=== PATIENT | male | born 1980 | race American Indian/Alaskan Native ===

== ENCOUNTER 2018-05-25 12:24 | Emergency (ER) | payer MEDICAID ==
[2018-05-25 12:32] VITALS: TEMP 98.3; O2SAT 100
--- NOTE | 2018-05-25 14:18 | ED PDOC ---
HPI: Psych/Substance Abuse Time Seen by Provider: 05/25/18 13:10 Chief Complaint (Nursing): Psychiatric Evaluation Chief Complaint (Provider): Psychiatric Evaluation History Per: Patient History/Exam Limitations: no limitations Additional Complaint(s): 37 year old male with a history of bipolar disorder presents to the ED for psychiatric evaluation. Patient states he ran out of medications like trazodone but cannot recall the others. PMD: None provided Past Medical History Reviewed: Historical Data, Nursing Documentation, Vital Signs Vital Signs: Last Vital Signs Temp 98.3 F 05/25/18 12:29 Pulse 88 05/25/18 12:29 Resp 19 05/25/18 12:29 BP 106/70 05/25/18 12:29 Pulse Ox 100 05/25/18 12:29 - Medical History PMH: Bipolar Disorder, Schizophrenia Denies: Diabetes, Hepatitis, HIV, HTN, Seizures, Sexually Transmitted Disease - Surgical History Surgical History: No Surg Hx - Family History Family History: States: Unknown Family Hx - Immunization History Hx Tetanus Toxoid Vaccination: No Hx Influenza Vaccination: No Hx Pneumococcal Vaccination: No - Home Medications Home Medications: Ambulatory Orders Medication Instructions Recorded Benztropine [Cogentin] 1 mg PO BID 14 Days tab 12/06/16 Divalproex [Depakote DR] 500 mg PO BID 14 Days tcp 12/06/16 Haloperidol [Haldol] 10 mg PO BID 14 Days tab 12/06/16 QUEtiapine [Seroquel] 100 mg PO HS #14 tab 12/06/16 traZODone [Desyrel] 100 mg PO HS PRN #14 tab 12/06/16 - Allergies Allergies/Adverse Reactions: Allergies Allergy/AdvReac Type Severity Reaction Status Date / Time No Known Allergies Allergy Unverified 12/02/16 02:05 Review of Systems ROS Statement: Except As Marked, All Systems Reviewed And Found Negative Psych: Positive for: Psychosis, Other (no HI, auditory hallucinations). Negative for: Suicidal ideation Physical Exam - Reviewed Nursing Documentation Reviewed: Yes Vital Signs Reviewed: Yes - Physical Exam Appears: Positive for: Well, No Acute Distress (comfortable) Head Exam: Positive for: ATRAUMATIC, NORMOCEPHALIC Skin: Positive for: Normal Color, Warm, Dry Eye Exam: Positive for: Normal appearance Neurological/Psych: Positive for: Awake, Alert, Other (Patient appears to have internal stimuli but is calm and cooperative on exam ) - ECG O2 Sat by Pulse Oximetry: 100 (RA) Pulse Ox Interpretation: Normal Medical Decision Making Medical Decision Making: Time: 1334 Impression: psychosis Plan: --Crisis evaluation --Alcohol serum --urine drug screen ScribeAttestation: Documented byShameka Crain, acting as a scribe for Yesica Brnuo MD. Provider ScribeAttestation: All medical record entries made by the Scribe were at my direction and personally dictated by me. I have reviewed the chart and agree that the record accurately reflects my personal performance of the history, physical exam, medical decision making, and the department course for this patient. I have also personally directed, reviewed, and agree with the discharge instructions and disposition. Disposition - Clinical Impression Clinical Impression: Cannabis use disorder, mild, abuse - Patient ED Disposition Is Patient to be Admitted: Transfer of Care Counseled Patient/Family Regarding: Studies Performed, Diagnosis - Disposition Referrals: [facility] [Outside] - 05/28/18 Disposition: Transfer of Care Disposition Time: 15:00 Condition: STABLE Additional Instructions: Return if not better 3 days. Instructions: Marijuana Use and Addiction Patient Signed Over To: Miller Mendez
[2018-05-25 15:10] LABS: BARBITURATES, UR NEGATIVE (NEGATIVE); BENZODIAZEPINES, UR NEGATIVE (NEGATIVE); OPIATES, UR NEGATIVE (NEGATIVE); PHENCYCLIDINE, UR NEGATIVE (NEGATIVE)
--- NOTE | 2018-05-25 15:14 | ED PDOC ---
- ECG O2 Sat by Pulse Oximetry: 100 (RA) Pulse Ox Interpretation: Normal - Progress ED Course And Treament: 1859: Stable. AAOx3. Pain free. Tolerated PO. Fu with pcp. Crisis saw pt. Does not meet criteria for admit. Medical Decision Making Medical Decision Making: Time: 1500 --37 year old patient signed out to this provider by Dr. Bruno, pending Crisis Evaluation. ScribeAttestation: Documented byShameka Crain, acting as a scribe for Miller Mendez MD. Provider ScribeAttestation: All medical record entries made by the Scribe were at my direction and personally dictated by me. I have reviewed the chart and agree that the record accurately reflects my personal performance of the history, physical exam, medical decision making, and the department course for this patient. I have also personally directed, reviewed, and agree with the discharge instructions and disposition. Disposition Counseled Patient/Family Regarding: Studies Performed, Diagnosis, Need For Followup - Clinical Impression Clinical Impression: Cannabis use disorder, mild, abuse - POA Present On Arrival: None - Disposition Referrals: [facility] [Outside] - 05/28/18 Disposition: Routine/Home Disposition Time: 18:50 Condition: STABLE Additional Instructions: Return if not better 3 days. Instructions: Marijuana Use and Addiction
[2018-05-25 18:02] VITALS: BP 111/70; PULSE 73; RESP 18
== END 2018-05-25 19:04 | disposition home or self-care (01) ==
LOC: H.ER 12:24
DX: F12.10 Cannabis abuse, uncomplicated (principal); F20.9 Schizophrenia, unspecified; F31.9 Bipolar disorder, unspecified